=== PATIENT | male | born 1980 | race Caucasian/White ===

== ENCOUNTER 2016-09-27 20:54 | Emergency (ER) | payer OTHER ==
[2016-09-27 21:49] LABS: HEMOGLOBIN 14.6 gm/dl (14.0-17.5); RED BLOOD COUNT 4.6 M/UL (4.20-5.50)
[2016-09-27 22:05] LABS: BUN/CREATININE RATIO 6 (0-10)
== END 2016-09-27 23:20 | disposition home or self-care (01) ==
LOC: ER1 20:54
PROVIDERS: Emergency Medicine
DX: R10.9 Unspecified abdominal pain (principal); K76.0 Fatty (change of) liver, not elsewhere classified; F17.200 Nicotine dependence, unspecified, uncomplicated
CPT/HCPCS: 36415; 80053; 81001; 82150; 83690; 84484; 85025; 87086; 93005; 96361; 96374; 96375; 99284; J2270; J2405; J7030; J7050; Q9962

== ENCOUNTER 2021-09-16 14:30 | Emergency (ER) | payer OTHER ==
[~2021-09-16 14:30] MED LIST: BENTYL 20MG TAB20 MG PO; IBUPROFEN600 MG PO; PROTONIX40 MG PO; ZOFRAN ODT 4 MG4 MG SL
[2021-09-16 15:22] LABS: HEMOGLOBIN 15.2 gm/dl (14.0-17.5); RED BLOOD COUNT 4.84 M/UL (4.20-5.50); WHITE BLOOD COUNT 11.9 K/UL (4.5-11.0)
[2021-09-16 15:47] LABS: BUN/CREATININE RATIO 11 (0-10)
== END 2021-09-16 18:16 | disposition home or self-care (01) ==
LOC: ER1 14:30
PROVIDERS: Family Medicine
DX: R20.0 Anesthesia of skin (principal); R51.9 Headache, unspecified; F17.200 Nicotine dependence, unspecified, uncomplicated; Z88.6 Allergy status to analgesic agent
CPT/HCPCS: 70450; 70496; 70498; 80053; 80307; 82550; 82553; 83735; 84439; 84443; 84484; 85025; 93005; 99284; Q9967